=== PATIENT | female | born 1990 | race Caucasian/White ===

== ENCOUNTER 2016-05-26 00:27 | Emergency (ER) | payer MEDICAID ==
[~2016-05-26] VITALS: Ht 160 cm; Wt 75.0 kg
[~2016-05-26 00:27] MED LIST: AMOXICILLIN 8751 TAB PO; CIPRO 500MG TA500 MG PO; DEPO-PROVER150 MG/M1; LEXAPRO 10MG10 MG PO; MVI; NO HOME MEDICATIONS; PRENATAL1 TA1; PROZAC 20MG20 MG PO; TUSS PO; ZOFRAN 4MG T4 MG/TAB PO; ZOFRAN ODT4 MG PO
[2016-05-26 00:30] VITALS: TEMP 98.5
[2016-05-26] MEDS ORDERED: MACRODANTIN100 PO (00:35)
[2016-05-26] MEDS ORDERED: WELLBUTRIN XL300 M1 PO (00:35)
[2016-05-26 01:44] LABS: BASO # 0.1 (0.0-0.2); BASO % 0.5 % (0.0-2.0); EOS # 0.3 (0.0-0.7); EOS % 2.3 % (0-4.0); GRAN # 8.9 (1.4-6.5); GRAN % 62.6 % (42.2-75.2); HEMATOCRIT 38.3 % (37.0-47.0); HEMOGLOBIN 13.2 g/dl (12.5-16.0); LYMPH # 3.8 (1.2-3.4); LYMPH % 26.7 % (20.0-51.0); MEAN CELL VOLUME 88 fl (80.0-100.0); MEAN CORPUSCULAR HEMOGLOBIN 30 pg (27.0-31.0); MEAN CORPUSCULAR HGB CONC 35 g/dl (33.0-37.0); MEAN PLATELET VOLUME 10.3 fl (7.4-10.4); MONO % 7.4 % (1.7-9.3); PLATELET COUNT 289 K/mm3 (130-400); RED BLOOD COUNT 4.36 M/mm3 (4.10-5.30); REDCELL DISTRIBUTION WIDTH-CV 12.7 % (11.5-14.5); WHITE BLOOD COUNT 14.1 K/mm3 (4.8-10.8)
[2016-05-26 02:19] LABS: PH 6 (5-8); SQUAMOUS EPITHELIAL None Seen /hpf; URINE APPEARANCE Clear; URINE BACTERIA Rare /hpf; URINE BILIRUBIN Negative (NEGATIVE); URINE BLOOD Negative (NEGATIVE); URINE COLOR Yellow; URINE GLUCOSE Negative (NEGATIVE); URINE KETONE Negative (NEGATIVE); URINE RBC 0-2 /hpf; URINE UROBILINOGEN Negative (NEGATIVE); URINE WBC 0-2 /hpf
[2016-05-26 04:07] VITALS: BP 120/70; PULSE 90
[2016-05-26 05:31] LABS: CHLAMYDIA/TRACH by PCR Female NOT DETECTED; NEISSERIA GON by PCR Female NOT DETECTED
== END 2016-05-26 04:17 | disposition home or self-care (01) ==
LOC: COL.ER 00:27
PROVIDERS: Emergency Medicine; Physician Assistant
DX: O26.891 Other specified pregnancy related conditions, first trimester (principal); Z3A.08 8 weeks gestation of pregnancy; R10.2 Pelvic and perineal pain; N94.89 Other specified conditions associated with female genital organs and menstrual cycle
CPT/HCPCS: J2550; J7030

== ENCOUNTER 2016-07-10 22:13 | Emergency (ER) | payer MEDICAID ==
[~2016-07-10] VITALS: Ht 160 cm; Wt 70.5 kg
[~2016-07-10 22:13] MED LIST changes: +MACRODANTIN100 PO; +WELLBUTRIN XL300 M1 PO
[2016-07-10 22:16] VITALS: BP 113/70; PULSE 94; TEMP 98.3
== END 2016-07-10 23:06 | disposition home or self-care (01) ==
LOC: COL.ER 22:13
DX: O20.0 Threatened abortion (principal); Z3A.14 14 weeks gestation of pregnancy; Z87.891 Personal history of nicotine dependence; Z98.890 Other specified postprocedural states

== ENCOUNTER 2016-08-02 22:13 | Emergency (ER) | payer MEDICAID ==
[~2016-08-02] VITALS: Ht 160 cm; Wt 70.5 kg
[2016-08-02 22:15] VITALS: TEMP 97.9
[2016-08-02 23:07] LABS: PH 6 (5-8); URINE APPEARANCE Cloudy; URINE BACTERIA Rare /hpf; URINE BILIRUBIN Negative (NEGATIVE); URINE BLOOD Negative (NEGATIVE); URINE COLOR Yellow; URINE GLUCOSE Negative (NEGATIVE); URINE KETONE Negative (NEGATIVE); URINE RBC 0-2 /hpf; URINE UROBILINOGEN Negative (NEGATIVE)
[2016-08-02 23:25] VITALS: BP 128/59; PULSE 93
== END 2016-08-02 23:26 | disposition home or self-care (01) ==
LOC: COL.ER 22:13
PROVIDERS: Physician Assistant
DX: O20.0 Threatened abortion (principal); Z3A.18 18 weeks gestation of pregnancy; R10.84 Generalized abdominal pain

== ENCOUNTER 2016-10-28 21:47 | Outpatient (CLI) | payer MEDICAID ==
[~2016-10-28] VITALS: Ht 160 cm; Wt 79.1 kg
[2016-10-28 22:22] VITALS: BP 108/58; PULSE 96
[2016-10-28 22:30] VITALS: BP 108/58; PULSE 96; TEMP 98.3
[2016-10-28] MEDS ORDERED: ZOLOFT 50MG50 MG PO (22:32)
[2016-10-28 22:48] VITALS: BP 106/56; PULSE 90
[2016-10-28 22:49] VITALS: BP 108/59; PULSE 88
[2016-10-28 22:56] LABS: MEAN CELL VOLUME 85 fl (80.0-100.0); MEAN CORPUSCULAR HGB CONC 32 g/dl (33.0-37.0); MEAN PLATELET VOLUME 9.9 fl (7.4-10.4); PLATELET COUNT 251 K/mm3 (130-400); RED BLOOD COUNT 3.83 M/mm3 (4.10-5.30); REDCELL DISTRIBUTION WIDTH-CV 12.9 % (11.5-14.5)
[2016-10-28 22:58] LABS: ADD PATHOLOGY DIFF REVIEW NO; HEMATOCRIT 32.5 % (37.0-47.0); HEMOGLOBIN 10.5 g/dl (12.5-16.0); MEAN CORPUSCULAR HEMOGLOBIN 27 pg (27.0-31.0)
[2016-10-28 23:01] LABS: PH 8 (5-8); SQUAMOUS EPITHELIAL 0-2 /hpf; URINE APPEARANCE Hazy; URINE BACTERIA Rare /hpf; URINE BILIRUBIN Negative (NEGATIVE); URINE BLOOD Negative (NEGATIVE); URINE COLOR Yellow; URINE GLUCOSE Negative (NEGATIVE); URINE KETONE Negative (NEGATIVE); URINE RBC 0-2 /hpf; URINE UROBILINOGEN Negative (NEGATIVE); URINE WBC 0-2 /hpf
[2016-10-28 23:02] VITALS: BP 105/61; PULSE 88
[2016-10-28 23:05] LABS: BAND 9 % (0-10); NEUTROPHILS 59 % (42.0-75.2); PLATELET ESTIMATE NORMAL (NORMAL); TOTAL CELLS COUNTED 100
[2016-10-28 23:07] LABS: ADJUSTED CALCIUM 9.3 mg/dL (8.4-10.2); ALBUMIN 3.1 gm/dL (3.5-5.0); BILIRUBIN,TOTAL 0.5 mg/dL (0.0-1.0); CALCIUM 8.6 mg/dL (8.4-10.2); CREATININE, serum 0.51 mg/dL (0.52-1.25); POTASSIUM 3.4 mmol/L (3.4-5.0); TOTAL PROTEIN 6.3 gm/dL (6.4-8.2)
[2016-10-28 23:31] VITALS: BP 107/64; PULSE 91
== END 2016-10-28 23:45 | disposition home or self-care (01) ==
LOC: LDRO 21:47
PROVIDERS: Obstetrics & Gynecology
DX: O26.893 Other specified pregnancy related conditions, third trimester (principal); R51 Headache; Z3A.30 30 weeks gestation of pregnancy

== ENCOUNTER 2016-11-07 21:08 | Outpatient (CLI) | payer MEDICAID ==
[~2016-11-07] VITALS: Ht 160 cm; Wt 79.5 kg
[~2016-11-07 21:08] MED LIST changes: +ZOLOFT 50MG50 MG PO
[2016-11-07 21:15] VITALS: BP 109/59; PULSE 89; TEMP 98
[2016-11-07 21:25] VITALS: BP 109/59; PULSE 89; TEMP 98
== END 2016-11-07 21:55 | disposition home or self-care (01) ==
LOC: LDRO 21:08
DX: O26.893 Other specified pregnancy related conditions, third trimester (principal); R10.9 Unspecified abdominal pain; Z3A.32 32 weeks gestation of pregnancy

== ENCOUNTER 2016-11-27 20:10 | Outpatient (CLI) | payer MEDICAID ==
[~2016-11-27] VITALS: Ht 160 cm; Wt 79.5 kg
[2016-11-27 20:45] VITALS: BP 116/61; PULSE 101; TEMP 98
[2016-11-27 21:15] VITALS: BP 107/63; PULSE 89
== END 2016-11-27 21:40 | disposition home or self-care (01) ==
LOC: LDRO 20:10
DX: O62.2 Other uterine inertia (principal); Z3A.34 34 weeks gestation of pregnancy

== ENCOUNTER 2016-12-08 17:44 | Outpatient (CLI) | payer MEDICAID ==
[~2016-12-08] VITALS: Ht 160 cm; Wt 81.8 kg
[2016-12-08 18:25] VITALS: BP 111/64; PULSE 86; TEMP 98.2
== END 2016-12-08 18:48 | disposition home or self-care (01) ==
LOC: LDRO 17:44 → LDR 17:55 → LDRO 18:48 → LDR 18:55
DX: Z34.83 Encounter for supervision of other normal pregnancy, third trimester (principal); Z3A.36 36 weeks gestation of pregnancy
CPT/HCPCS: OP

== ENCOUNTER 2016-12-17 00:31 | Outpatient (CLI) | payer MEDICAID ==
[~2016-12-17] VITALS: Ht 160 cm; Wt 84.1 kg
[2016-12-17 00:52] VITALS: BP 119/66; PULSE 81; TEMP 98.6
[2016-12-17 01:40] VITALS: BP 119/66; PULSE 81
== END 2016-12-17 02:25 | disposition home or self-care (01) ==
LOC: LDRO 00:31
DX: O62.9 Abnormality of forces of labor, unspecified (principal); Z3A.37 37 weeks gestation of pregnancy

== ENCOUNTER 2016-12-26 09:12 | Inpatient (IN) | payer MEDICAID ==
[2016-12-26] VITALS (19 sets, daily range): BP systolic 93–122; BP diastolic 55–81; PULSE 59–85; TEMP 97.5–98
[~2016-12-26] VITALS: Ht 160 cm; Wt 84.1 kg
[2016-12-26 10:10] LABS: BASO # 0.1 (0.0-0.2); BASO % 0.5 % (0.0-2.0); EOS # 0.2 (0.0-0.7); EOS % 1.9 % (0-4.0); GRAN # 5.9 (1.4-6.5); GRAN % 63.6 % (42.2-75.2); HEMATOCRIT 32.8 % (37.0-47.0); LYMPH # 2.3 (1.2-3.4); LYMPH % 24.8 % (20.0-51.0); MEAN CELL VOLUME 77 fl (80.0-100.0); MEAN CORPUSCULAR HEMOGLOBIN 24 pg (27.0-31.0); MEAN CORPUSCULAR HGB CONC 31 g/dl (33.0-37.0); MEAN PLATELET VOLUME 11.2 fl (7.4-10.4); MONO # 0.8 (0.1-0.6); MONO % 8.2 % (1.7-9.3); PLATELET COUNT 273 K/mm3 (130-400); RED BLOOD COUNT 4.25 M/mm3 (4.10-5.30); WHITE BLOOD COUNT 9.3 K/mm3 (4.8-10.8)
[2016-12-27 03:40] VITALS: BP 120/79; PULSE 76; TEMP 98
[2016-12-27 08:30] VITALS: BP 117/66; PULSE 66; TEMP 97.8
[2016-12-27] MEDS ORDERED: IBU600 MG PO (09:12)
[2016-12-27] MEDS ORDERED: PERCOCET 325 MG1 TA2 PO (09:12)
[2016-12-27 16:00] VITALS: BP 113/72; PULSE 70; TEMP 98.4
[2016-12-27 20:00] VITALS: BP 114/68; PULSE 79; TEMP 98.8
[2016-12-28 08:30] VITALS: BP 116/62; PULSE 82; TEMP 98.8
[2016-12-28 16:30] VITALS: BP 116/60; PULSE 85; TEMP 98.7
[2016-12-28 19:00] VITALS: BP 124/69; PULSE 74; TEMP 97.7
[2016-12-29 08:30] VITALS: BP 129/74; PULSE 84; TEMP 98.2
== END 2016-12-29 17:25 | disposition home or self-care (01) | DRG 766 ==
LOC: OB 09:12
PROVIDERS: Obstetrics & Gynecology
PROC: 10D00Z1 Extraction of Products of Conception, Low, Open Approach (ICD-10-PCS; principal; 2016-12-26)
PROC: 0UB70ZZ Excision of Bilateral Fallopian Tubes, Open Approach (ICD-10-PCS; 2016-12-26)
DX: O34.211 Maternal care for low transverse scar from previous cesarean delivery (principal); N85.8 Other specified noninflammatory disorders of uterus; O99.824 Streptococcus B carrier state complicating childbirth; O99.02 Anemia complicating childbirth; D64.9 Anemia, unspecified; Z3A.39 39 weeks gestation of pregnancy; Z37.0 Single live birth; Z40.03 Encounter for prophylactic removal of fallopian tube(s)
CPT/HCPCS: J1200; J1580; J1885; J2270; J2370; J2405; J2590; J7120

== ENCOUNTER 2021-09-16 06:51 | Emergency (ER) | payer MEDICAID ==
[~2021-09-16] VITALS: Ht 157.5 cm; Wt 89.5 kg
[~2021-09-16 06:51] MED LIST changes: +IBU600 MG PO; +PERCOCET 325 MG1 TA2 PO
[2021-09-16 07:01] VITALS: TEMP 99.7
[2021-09-16 07:42] LABS: COLLECTION METHOD CLEAN CATCH
[2021-09-16 07:44] LABS: STREP SCREEN POSITIVE
[2021-09-16 07:53] LABS: MUCOUS Present (NOT PRESENT); PH 7 (5-8); URINE APPEARANCE Hazy (CLEAR/HAZY); URINE BACTERIA None Seen /hpf (NONE SEEN); URINE BLOOD Negative (NEGATIVE); URINE COLOR Yellow (YELLOW); URINE GLUCOSE Negative (NEGATIVE); URINE KETONE Negative (NEGATIVE); URINE NITRATE Negative (NEGATIVE); URINE PROTEIN(semi-quant) Negative (NEGATIVE); URINE RBC None Seen /hpf (0-2); URINE UROBILINOGEN Negative (NEGATIVE)
[2021-09-16] MEDS ORDERED: ZITHROMAX500 M2 PO (08:00)
[2021-09-16 08:15] VITALS: BP 118/72; PULSE 94
== END 2021-09-16 08:15 | disposition home or self-care (01) ==
LOC: COL.ER 06:51
PROVIDERS: Emergency Medicine
DX: J02.0 Streptococcal pharyngitis (principal); R10.30 Lower abdominal pain, unspecified; Z91.040 Latex allergy status; Z88.1 Allergy status to other antibiotic agents; Z28.310 Unvaccinated for COVID-19; Z20.822 Contact with and (suspected) exposure to COVID-19

== ENCOUNTER 2023-03-08 10:11 | Emergency (ER) | payer MEDICAID ==
[~2023-03-08] VITALS: Ht 157.5 cm; Wt 89.1 kg
[~2023-03-08 10:11] MED LIST changes: +ZITHROMAX500 M2 PO
[2023-03-08 10:15] VITALS: BP 171/119; TEMP 98.3
[2023-03-08] MEDS ORDERED: Clindamycin 150 MG CAP PO ONE (10:30)
[2023-03-08] MEDS ORDERED: CLEOCIN HC150 MG/CAP PO (10:59)
[2023-03-08 11:31] VITALS: PULSE 88
== END 2023-03-08 11:32 | disposition home or self-care (01) ==
LOC: COL.ER 10:11
DX: S99.922A Unspecified injury of left foot, initial encounter (principal); L03.032 Cellulitis of left toe; Z88.1 Allergy status to other antibiotic agents; Z91.040 Latex allergy status; W22.8XXA Striking against or struck by other objects, initial encounter